=== PATIENT | male | born 1960 | race Caucasian/White ===

== ENCOUNTER 2018-04-22 18:17 | Emergency (ER) | payer MEDICARE, OTHER ==
--- NOTE | 2018-04-22 18:47 | ED ---
Weakness HPI - General Chief complaint: Weakness Stated complaint: chest pain Time Seen by Provider: 04/22/18 18:17 Source: patient, EMS, RN notes reviewed Mode of arrival: EMS Limitations: no limitations - History of Present Illness Initial comments: This is a 57-year-old male who was just discharged from [facility] today after being inpatient for the treatment of shortness of breath/ COPD who was in a local restaurant using facilities when he became very diaphoretic and weak and went down to the ground. No chest pain was reported. EMS was called and a 12-lead EKG the tracing looks suspicious for ST elevation in the inferior leads. Patient was transported here for evaluation patient was given 324 aspirin he had no chest pain throughout any of the time and felt much improved after arriving at the emergency department. He has no known heart disease at least knows about he does smoke in spite of the COPD. No fevers chills or sweats at this time but again he did have diaphoresis at the onset of the symptoms today. - Related Data Home Medications Medication Instructions Recorded Confirmed Allopurinol [Zyloprim] 100 mg PO BID 04/22/18 04/22/18 Atenolol 25 mg PO BID 04/22/18 04/22/18 Atorvastatin [Lipitor] 40 mg PO HS 04/22/18 04/22/18 Budesonide [Pulmicort] 0.5 mg INHALATION RT-BID PRN 04/22/18 04/22/18 Cefuroxime Axetil [Ceftin] 500 mg PO BID 04/22/18 04/22/18 Furosemide [Lasix] 40 mg PO DAILY 04/22/18 04/22/18 Gabapentin [Neurontin] 100 mg PO TID 04/22/18 04/22/18 HYDROcodone/APAP 7.5-325MG [[place] 1 tab PO TID PRN 04/22/18 04/22/18 7.5-325] Ipratropium-Albuterol Nebulize 3 ml INHALATION RT-QID PRN 04/22/18 04/22/18 [Duoneb 0.5 mg-3 mg/3 ml Soln] Levalbuterol Hfa Inhaler [Xopenex 2 puff INHALATION RT-Q6H PRN 04/22/18 04/22/18 Hfa Inhaler] Levothyroxine Sodium [Synthroid] 200 mcg PO DAILY 04/22/18 04/22/18 Losartan Potassium [Cozaar] 25 mg PO DAILY 04/22/18 04/22/18 Potassium Chloride [Klor-Con 20] 20 meq PO DAILY 04/22/18 04/22/18 metFORMIN HCL [metFORMIN HCL ER] 750 mg PO BID 04/22/18 04/22/18 predniSONE See Taper PO DIRECTED 04/22/18 04/22/18 sitaGLIPtin [Januvia] 100 mg PO DAILY 04/22/18 04/22/18 Allergies Allergy/AdvReac Type Severity Reaction Status Date / Time No Known Allergies Allergy Verified 04/22/18 19:05 Review of Systems ROS Statement: Those systems with pertinent positive or pertinent negative responses have been documented in the HPI. ROS Other: All systems not noted in ROS Statement are negative. Past Medical History Past Medical History: COPD, Hypertension Additional Past Medical History / Comment(s): ephemsyma History of Any Multi-Drug Resistant Organisms: None Reported Past Surgical History: Orthopedic Surgery Additional Past Surgical History / Comment(s): right knee surgery Past Psychological History: No Psychological Hx Reported Smoking Status: Current every day smoker General Exam - General Exam Comments Initial Comments: This is a well developed well-nourished awake alert oriented 3 male Limitations: no limitations General appearance: alert, in no apparent distress Head exam: Present: atraumatic, normocephalic, normal inspection Eye exam: Present: normal appearance, PERRL, EOMI. Absent: scleral icterus, conjunctival injection, periorbital swelling ENT exam: Present: normal exam, mucous membranes moist Neck exam: Present: normal inspection. Absent: tenderness, meningismus, lymphadenopathy Respiratory exam: Present: normal lung sounds bilaterally. Absent: respiratory distress, wheezes, rales, rhonchi, stridor Cardiovascular Exam: Present: regular rate, normal rhythm, normal heart sounds. Absent: systolic murmur, diastolic murmur, rubs, gallop, clicks GI/Abdominal exam: Present: soft, normal bowel sounds, other (Obese abdomen). Absent: distended, tenderness, guarding, rebound, rigid Extremities exam: Present: normal inspection, full ROM, normal capillary refill. Absent: tenderness, pedal edema, joint swelling, calf tenderness Back exam: Present: normal inspection Neurological exam: Present: alert, oriented X3, CN II-XII intact Psychiatric exam: Present: normal affect, normal mood Skin exam: Present: warm, dry, intact, normal color. Absent: rash Course Vital Signs 04/22/18 04/22/18 04/22/18 18:18 18:58 19:16 Temperature 98.7 F Pulse Rate 93 89 Respiratory 18 18 20 Rate Blood Pressure 126/70 136/64 O2 Sat by Pulse 93 L 95 Oximetry 04/22/18 20:37 Temperature Pulse Rate 89 Respiratory 18 Rate Blood Pressure 136/75 O2 Sat by Pulse 94 L Oximetry EKG Findings - EKG Results: EKG: interpreted by [facility], sinus rhythm (Sinus rhythm rate 93. Interval 156 QRS duration 100 QT since QTC of 364/450 to right word axis possible left atrial enlargement nonspecific inferior changes this does compared with EKG dated from [facility]) Medical Decision Making - Medical Decision Making I did reevaluate patient several occasions he had no further symptoms he did discover that the regular valve on his oxygen tank is not working he believes this is what caused the incident today I did have one discussed with him and his regarding admission for observation and he did not want to be admitted was going home. We did discuss risks. Patient will be discharged he is a keep follow-up with his doctor return when necessary we did discuss EKG changes which appear to be chronic however I did inform I could not give him a guarantee that this is not an indicator of heart disease as a precipitating factor today. He is agreed to accept the responsibility - Lab Data Result diagrams: 04/22/18 18:45 04/22/18 18:45 Lab Results 04/22/18 04/22/18 04/22/18 Range/Units 18:45 18:45 18:45 WBC 13.9 H (3.8-10.6) k/uL RBC 5.65 (4.30-5.90) m/uL Hgb 15.3 (13.0-17.5) gm/dL Hct 49.1 (39.0-53.0) % MCV 86.9 (80.0-100.0) fL MCH 27.1 (25.0-35.0) pg MCHC 31.2 (31.0-37.0) g/dL RDW 15.5 (11.5-15.5) % Plt Count 169 (150-450) k/uL Neutrophils % 90 % Lymphocytes % 4 % Monocytes % 3 % Eosinophils % 2 % Basophils % 1 % Neutrophils # 12.6 H (1.3-7.7) k/uL Lymphocytes # 0.6 L (1.0-4.8) k/uL Monocytes # 0.4 (0-1.0) k/uL Eosinophils # 0.2 (0-0.7) k/uL Basophils # 0.1 (0-0.2) k/uL Hypochromasia Moderate PT (9.0-12.0) sec INR (<1.2) APTT (22.0-30.0) sec Sodium 144 (137-145) mmol/L Potassium 4.2 (3.5-5.1) mmol/L Chloride 89 L (98-107) mmol/L Carbon Dioxide 44 H* (22-30) mmol/L Anion Gap 11 mmol/L BUN 26 H (9-20) mg/dL Creatinine 0.65 L (0.66-1.25) mg/dL Est GFR (CKD-EPI)AfAm >90 (>60 ml/min/1.73 sqM) Est GFR (CKD-EPI)NonAf >90 (>60 ml/min/1.73 sqM) Glucose 223 H (74-99) mg/dL Calcium 8.7 (8.4-10.2) mg/dL Magnesium 1.7 (1.6-2.3) mg/dL Total Bilirubin 0.4 (0.2-1.3) mg/dL AST 14 L (17-59) U/L ALT 26 (21-72) U/L Alkaline Phosphatase 78 (38-126) U/L Total Creatine Kinase 32 L (55-170) U/L CK-MB (CK-2) 0.9 (0.0-2.4) ng/mL CK-MB (CK-2) Rel Index 2.8 Troponin I <0.012 (0.000-0.034) ng/mL NT-Pro-B Natriuret Pep pg/mL Total Protein 6.0 L (6.3-8.2) g/dL Albumin 3.8 (3.5-5.0) g/dL 04/22/18 04/22/18 Range/Units 18:45 18:45 WBC (3.8-10.6) k/uL RBC (4.30-5.90) m/uL Hgb (13.0-17.5) gm/dL Hct (39.0-53.0) % MCV (80.0-100.0) fL MCH (25.0-35.0) pg MCHC (31.0-37.0) g/dL RDW (11.5-15.5) % Plt Count (150-450) k/uL Neutrophils % % Lymphocytes % % Monocytes % % Eosinophils % % Basophils % % Neutrophils # (1.3-7.7) k/uL Lymphocytes # (1.0-4.8) k/uL Monocytes # (0-1.0) k/uL Eosinophils # (0-0.7) k/uL Basophils # (0-0.2) k/uL Hypochromasia PT 10.5 (9.0-12.0) sec INR 1.1 (<1.2) APTT 22.4 (22.0-30.0) sec Sodium (137-145) mmol/L Potassium (3.5-5.1) mmol/L Chloride (98-107) mmol/L Carbon Dioxide (22-30) mmol/L Anion Gap mmol/L BUN (9-20) mg/dL Creatinine (0.66-1.25) mg/dL Est GFR (CKD-EPI)AfAm (>60 ml/min/1.73 sqM) Est GFR (CKD-EPI)NonAf (>60 ml/min/1.73 sqM) Glucose (74-99) mg/dL Calcium (8.4-10.2) mg/dL Magnesium (1.6-2.3) mg/dL Total Bilirubin (0.2-1.3) mg/dL AST (17-59) U/L ALT (21-72) U/L Alkaline Phosphatase (38-126) U/L Total Creatine Kinase (55-170) U/L CK-MB (CK-2) (0.0-2.4) ng/mL CK-MB (CK-2) Rel Index Troponin I (0.000-0.034) ng/mL NT-Pro-B Natriuret Pep 342 pg/mL Total Protein (6.3-8.2) g/dL Albumin (3.5-5.0) g/dL - Radiology Data Radiology results: report reviewed, image reviewed Disposition Clinical Impression: Vasovagal episode, Hypoxemia Disposition: HOME SELF-CARE Condition: Stable Instructions: Near Syncope (ED), Using Oxygen at Home (ED), COPD (Chronic Obstructive Pulmonary Disease) (ED) Is patient prescribed a controlled substance at d/c from ED?: No Referrals: Urban Campos MD [Primary Care Provider] - 1-2 days
[2018-04-22 18:53] LABS: Basophils # (A) 0.1 k/uL (0-0.2); Basophils % (A) 1 %; Eosinophils # (A) 0.2 k/uL (0-0.7); Eosinophils % (A) 2 %; HCT 49.1 % (39.0-53.0); HGB 15.3 gm/dL (13.0-17.5); Hypochromasia Moderate; Lymphocytes # (A) 0.6 k/uL (1.0-4.8); Lymphocytes % (A) 4 %; MCH 27.1 pg (25.0-35.0); MCHC 31.2 g/dL (31.0-37.0); MCV 86.9 fL (80.0-100.0); Mean Platelet Volume 6.4; Monocytes # (A) 0.4 k/uL (0-1.0); Monocytes % (A) 3 %; Neutrophils # (A) 12.6 k/uL (1.3-7.7); Neutrophils % (A) 90 %; Platelet Count 169 k/uL (150-450); RBC 5.65 m/uL (4.30-5.90); RDW 15.5 % (11.5-15.5); WBC 13.9 k/uL (3.8-10.6)
[2018-04-22 19:03] LABS: INR 1.1 (<1.2); Partial Thromboplastin Time 22.4 sec (22.0-30.0); Prothrombin Time 10.5 sec (9.0-12.0)
[2018-04-22 19:04] LABS: ALT 26 U/L (21-72); AST 14 U/L (17-59); Albumin 3.8 g/dL (3.5-5.0); Alkaline Phosphatase 78 U/L (38-126); Blood Urea Nitrogen 26 mg/dL (9-20); Calcium 8.7 mg/dL (8.4-10.2); Chloride 89 mmol/L (98-107); Glucose 223 mg/dL (74-99); Magnesium 1.7 mg/dL (1.6-2.3); Potassium 4.2 mmol/L (3.5-5.1); Sodium 144 mmol/L (137-145); Total Bilirubin 0.4 mg/dL (0.2-1.3)
[2018-04-22 19:10] LABS: Anion Gap 11 mmol/L
[2018-04-22 19:15] LABS: Creatine Kinase 32 U/L (55-170)
[2018-04-22 19:19] LABS: Carbon Dioxide 44 mmol/L (22-30)
[2018-04-22 19:28] LABS: Creatine Kinase MB 0.9 ng/mL (0.0-2.4); Troponin I <0.012 ng/mL (0.000-0.034)
--- NOTE | 2018-04-22 19:30 | XR ---
EXAMINATION TYPE: XR chest 2V DATE OF EXAM: 04/22/2018 COMPARISON: NONE INDICATION: Difficulty breathing short of breath TECHNIQUE: Frontal and lateral views of the chest are obtained. FINDINGS: The heart size is mildly prominent. The pulmonary vasculature is normal. Mild bibasilar infiltrates are present. This is nonspecific and may be related to subsegmental atelec tasis. Suspicious Consolidation is not evident. IMPRESSION: 1. Mild bibasilar subsegmental atelectasis. 2. Mild cardiomegaly
[2018-04-22 20:38] VITALS: RESP 18
[2018-04-22 22:27] VITALS: BP 163/78; PULSE 90; TEMP 99.3
== END 2018-04-22 22:25 | disposition home or self-care (01) ==
LOC: EC 18:17
DX: R55 Syncope and collapse (principal); R09.02 Hypoxemia; J44.9 Chronic obstructive pulmonary disease, unspecified; I10 Essential (primary) hypertension; F17.200 Nicotine dependence, unspecified, uncomplicated; Z79.51 Long term (current) use of inhaled steroids; Z79.84 Long term (current) use of oral hypoglycemic drugs; Z79.52 Long term (current) use of systemic steroids; Z79.899 Other long term (current) drug therapy
CPT/HCPCS: 36415; 71046; 80053; 82550; 82553; 83735; 83880; 84484; 85025; 85610; 85730; 93005; 99285